=== PATIENT | male | born 1970 | race African-American/Black ===

== ENCOUNTER 2017-05-07 06:45 | Emergency (ER) | payer OTHER ==
[~2017-05-07] VITALS: Ht 180.3 cm; Wt 86.3 kg
[2017-05-07] MEDS ORDERED: PROCTOZONE-HC30 GM PR (07:26)
[2017-05-07] MEDS ORDERED: COLACE100 MG PO (07:26)
[2017-05-07 07:35] VITALS: BP 167/99
== END 2017-05-07 07:56 | disposition home or self-care (01) ==
LOC: EME 06:45
DX: K64.9 Unspecified hemorrhoids (principal); F17.200 Nicotine dependence, unspecified, uncomplicated
CPT/HCPCS: 99281; 99284

== ENCOUNTER 2017-09-04 07:56 | Emergency (ER) | payer SELFPAY ==
[~2017-09-04] VITALS: Ht 180.3 cm; Wt 81.4 kg
[~2017-09-04 07:56] MED LIST: AUGMENTIN875 MG PO; COLACE100 MG PO; HYDROCODON-ACE1 EAC7 PO; LAMISIL AT12 GM TP; PRILOSEC20 MG PO; PROCTOZONE-HC30 GM PR; TERBINAFINE HC250 MG PO; ZOFRAN4 MG PO
[2017-09-04] MEDS ORDERED: PROCTOZONE-HC30 GM PR (08:12)
[2017-09-04] MEDS ORDERED: COLACE100 MG PO (08:12)
[2017-09-04 08:26] VITALS: BP 108/73
== END 2017-09-04 08:27 | disposition home or self-care (01) ==
LOC: EME 07:56
DX: K59.00 Constipation, unspecified (principal); F17.200 Nicotine dependence, unspecified, uncomplicated
CPT/HCPCS: 99281; 99284